=== PATIENT | female | born 1945 | race Caucasian/White ===

== ENCOUNTER → 2019-03-24 | Outpatient (CLI) | payer MEDICARE ==
[~2019-03-24] MED LIST: ASPI-715 PO; ATOR20TA22 PO; CAR200 PO; CARB1TAB11 PO; CARB25TA PO; CEP500 PO; CHOL200023 PO; CYAN25007 SL; FLUD0.1T12 PO; GAB300 PO; HYDR-3078 PO; LEVO137T23 PO; LISI-368 PO; LISI5TAB25 PO; LOR5/325 PO; OMEG-26 PO; OMEP-153 PO; OXYC-865 PO; PAR20 PO; POTA99TA13 PO; PRA20 PO; ROPI0.5T25 PO; ROPI4TAB22 PO; WARF5TAB23 PO
[2019-03-24 12:02] LABS: PLATELET COUNT, AUTOMATED 162 K/uL (150-450)
== END ==
LOC: LAB 11:31
DX: D46.9 Myelodysplastic syndrome, unspecified (principal)
CPT/HCPCS: 36415; 82310; 82374; 82435; 82565; 82947; 84132; 84295; 84520; 85025